=== PATIENT | male | born 1960 | race Two or more races ===

== ENCOUNTER 2024-05-26 03:10 | Emergency (ER) | payer OTHER ==
[~2024-05-26] VITALS: Ht 170.2 cm; Wt 74.8 kg
[2024-05-26] MEDS ORDERED: FAMOTIDINE/PF 20 MG/2 ML VIAL IV PUSH STA (04:08)
[2024-05-26] MEDS ORDERED: PROMETHAZINE HCL 50 MG/ML AMPUL IM STA (04:08)
[2024-05-26] MEDS ORDERED: 0.9 % SODIUM CHLORIDE 500 ML IV ONE (04:15)
[2024-05-26] MEDS ORDERED: PROMETHAZINE HCL 50 MG/ML AMPUL IM ONE (04:24)
[2024-05-26] MEDS ORDERED: FAMOtidine 200mg/20ml VIAL ONE (04:24)
[2024-05-26 05:06] LABS: HEMATOCRIT 40.2 % (39.0-48.0); HEMOGLOBIN 13.9 g/dL (13-16.00); MEAN CELL VOLUME 91.2 fL (80.0-100.00); MEAN CORPUSCULAR HEMOGLOBIN 31.6 pg (27.00-32.0); MEAN CORPUSCULAR HGB CONC 34.7 g/dl (32.0-36.0); PLATELET COUNT 240 K/uL (150-450); RED BLOOD COUNT 4.41 M/uL (4.00-6.00); RED CELL DISTRIBUTION WIDTH 12.8 % (11.5-14.5)
[2024-05-26 05:23] LABS: ALBUMIN 4.3 gm/dL (3.4-5.0); BILIRUBIN TOTAL 0.42 mg/dL (0.3-1.2); CALCIUM 8.9 mg/dL (8.5-10.1); CREATININE SERUM 0.74 mg/dL (0.70-1.30); GFR 107.17; GLOBULINA 3.8 G/DL (2.4-3.5); POTASSIUM 3.34 mEq/L (3.5-5.1); TOTAL PROTEIN 8.1 gm/dL (6.4-8.2)
[2024-05-26] MEDS ORDERED: MEPERIDINE HCL/PF 50 MG/ML VIAL IM STA (05:30)
[2024-05-26 09:52] LABS: PH,URINE 8.5 (5.0-8.0); URINE BILIRRUBIN Negative (NEGATIVE); URINE BLOOD Negative; URINE COLOR Yellow; URINE GLUCOSE Negative (NEGATIVE); URINE KETONE Negative (NEGATIVE); URINE LEUKOCYTE Negative; URINE NITRATE Negative; URINE PROTEIN Trace (NEGATIVE); URINE UROBILINOGEN 0.2 E.U./dl
[2024-05-26 09:54] LABS: URINE RBC 5.3 uL (0.0-20.8); URINE WBC 2.3 uL (0.0-23.2)
[2024-05-26 10:00] LABS: URINE BACTERIA 2.5 uL (0.0-1933); URINE CAST 0.15 uL (0.0-1.40); URINE EPITHELIAL CELLS 0.6 uL (0.0-38.8)
[2024-05-26 10:01] LABS: URINE APPEARANCE CLEAR
== END 2024-05-26 10:45 | disposition home or self-care (01) ==
LOC: ER 03:11
PROVIDERS: General Practice
DX: R10.13 Epigastric pain (principal)